=== PATIENT | female | born 1995 | race Caucasian/White ===

== ENCOUNTER 2018-02-06 10:43 | Emergency (ER) | payer BC, OTHER ==
--- NOTE | 2018-02-06 10:50 | EDPHY ---
H & P Time Seen by Provider: 02/06/18 10:49 HPI/ROS: CHIEF COMPLAINT: Left arm tingling and blurred vision HISTORY OF PRESENT ILLNESS: Otherwise healthy, visiting from [facility], her father lives here. She flew from [facility] down to [place] and then on the airplane on the way from [place] to [place] felt like she was getting tingling in both hands and blurred vision. She felt a little bit lightheaded and dizzy since then and her symptoms have varied including shortness of breath which is now resolved, hazy or blurry vision, now tingling just in her left arm. Symptoms moderate, persistent. Not better worse with anything. Not associated with headache or eye pain. She had a sore throat prior to leaving home but now it is gone. No ear symptoms. No difficulty with speech or strength. She does feel like her balance is a little bit off but has not fallen down. REVIEW OF SYSTEMS: Eye: HPI ENT: no sore throat Cardiac: no chest pain or syncope Pulmonary: no cough or SOB Abdomen: no vomiting, diarrhea, abdominal pain Musculoskeletal: No back or neck pain, no recent trauma or injury Skin: no rash Neuro: HPI Constitutional: no fever : no urinary symptoms A comprehensive 10 point review of systems is otherwise negative aside from elements mentioned in the history of present illness. PAST MEDICAL HISTORY: Negative Family history: Negative for neurologic Social history: No drugs, here with her father. General Appearance: Alert and conversant, cooperative. Eyes: No scleral icterus. Pupils equal reactive extraocular motion intact. No nystagmus. No diplopia. ENT, Mouth: Normal mucous membranes. Respiratory: Normal respiratory effort, breath sounds equal, lungs are clear to auscultation. Cardiovascular: Regular rate and rhythm. Gastrointestinal: Abdomen is soft and non tender. Neurological: Alert, face symmetric, normal motor and sensory in extremities. Normal oymxsr-[id number] bilaterally. Romberg negative. Can do tandem gait. Speech is fluent. She does have some decreased sensation to the left arm on direct testing with light touch. However she can feel me touch both arms. She has normal ginseng farmer strength. Not ataxic. Visual acuity noted, tested by nurse and is normal. Skin: Warm and dry, no rashes. Musculoskeletal: No peripheral edema. Psychiatric: Not agitated. Emergency Department course/MDM: Mother is history migraine headaches, she does feel lightheaded but has normal vital signs here. I think that pulmonary embolism or acute cardiac syndrome or dysrhythmia is unlikely. EKG performed to check her electrical intervals. With visual symptoms and left arm tingling and some subjective numbness to testing, MRI discussed and consented. Differential includes but not limited to intracranial mass or bleed, vasculitis or demyelinating disease, atypical migraine. 1220: Results discussed, emphasized no definitive diagnosis, mandatory follow- up when she returns home to [facility], stable for discharge. Does not this point have evidence of stroke or tumor or demyelinating disease, abnormal metabolic, malignant dysrhythmia. Smoking Status: Never smoked Constitutional: Initial Vital Signs Temperature (C) 36.8 C 02/06/18 10:45 Heart Rate 64 02/06/18 10:45 Respiratory Rate 17 02/06/18 10:45 Blood Pressure 127/98 H 02/06/18 10:45 O2 Sat (%) 99 02/06/18 10:45 O2 Delivery Mode Room Air Allergies/Adverse Reactions: No Known Allergies Allergy (Verified 02/06/18 10:44) Home Medications: Medication Instructions Recorded NK [No Known Home Meds] 02/06/18 Medical Decision Making - Diagnostics EKG Interpretation: 12-lead EKG interpreted by me; official reading is in computer system. My interpretation is sinus arrhythmia, P R is 209, no acute ischemic changes and otherwise normal intervals. Imaging Results: Imaging Impressions Brain MRI 02/06/18 11:06 Impression: Normal. No white matter disease, hemorrhage, or evidence of ischemia. Findings discussed with emergency department physician, Mg Ayala MD on February 06, 2018 at 12:09 p.m. Imaging: Discussed imaging studies w/ offset printer Radiologist Differential Diagnosis: Differential considered including but not limited to hyperventilation, metabolic abnormality, intracranial mass or demyelinating disease, atypical migraine - Data Points Laboratory Results: Laboratory Results 02/06/18 11:12 02/06/18 11:12 02/06/18 02/06/18 02/06/18 11:12 11:12 11:12 WBC 8.69 10^3/uL 10^3/uL (3.80-9.50) RBC 4.71 10^6/uL 10^6/uL (4.18-5.33) Hgb 13.6 g/dL g/dL (12.6-16.3) Hct 41.0 % % (38.0-47.0) MCV 87.0 fL fL (81.5-99.8) MCH 28.9 pg pg (27.9-34.1) MCHC 33.2 g/dL g/dL (32.4-36.7) RDW 13.2 % % (11.5-15.2) Plt Count 326 10^3/uL 10^3/uL (150-400) MPV 9.8 fL fL (8.7-11.7) Neut % (Auto) 65.0 % % (39.3-74.2) Lymph % (Auto) 23.1 % % (15.0-45.0) [place] % (Auto) 9.7 % % (4.5-13.0) Eos % (Auto) 1.5 % % (0.6-7.6) Baso % (Auto) 0.5 % % (0.3-1.7) Nucleat RBC Rel Count 0.0 % % (0.0-0.2) Absolute Neuts (auto) 5.65 10^3/uL 10^3/uL (1.70-6.50) Absolute Lymphs (auto) 2.01 10^3/uL 10^3/uL (1.00-3.00) Absolute Monos (auto) 0.84 10^3/uL H 10^3/uL (0.30-0.80) Absolute Eos (auto) 0.13 10^3/uL 10^3/uL (0.03-0.40) Absolute Basos (auto) 0.04 10^3/uL 10^3/uL (0.02-0.10) Absolute Nucleated RBC 0.00 10^3/uL 10^3/uL (0-0.01) Immature Gran % 0.2 % % (0.0-1.1) Immature Gran # 0.02 10^3/uL 10^3/uL (0.00-0.10) Sodium 140 mEq/L mEq/L (135-145) Potassium 4.1 mEq/L mEq/L (3.3-5.0) Chloride 105 mEq/L mEq/L (97-110) Carbon Dioxide 24 mEq/l mEq/l (22-31) Anion Gap 11 mEq/L mEq/L (8-16) BUN 13 mg/dL mg/dL (7-23) Creatinine 0.7 mg/dL mg/dL (0.6-1.0) Estimated GFR > 60 Glucose 99 mg/dL mg/dL (70-100) Calcium 9.9 mg/dL mg/dL (8.5-10.4) Beta HCG, Qual NEGATIVE Departure - Departure Disposition: Home, Routine, Self-Care Clinical Impression: Paresthesia of left arm, Blurry vision, bilateral Condition: Good Instructions: Paresthesia (ED) Additional Instructions: Normal laboratory and MRI. Please follow-up with a neurologist next week; bring copies of your studies when you return home to [facility]. Referrals: Rg Palmer DO [Doctor of Osteopathy] - As per Instructions
[2018-02-06 11:20] LABS: PLATELET COUNT 326 10^3/uL (150-400)
--- NOTE | 2018-02-06 11:40 | CPEKG ---
Test Reason : OPEN Blood Pressure : / mmHG Vent. Rate : 064 BPM Atrial Rate : 067 BPM P-R Int : 209 ms QRS Dur : 082 ms QT Int : 417 ms P-R-T Axes : 040 084 008 degrees QTc Int : 431 ms Sinus arrhythmia Borderline prolonged GA interval Left atrial enlargement Borderline T abnormalities, inferior leads Confirmed by Mg Ayala ([id number]) on 02/06/2018 11:39:33 AM Referred By: Confirmed By:Mg Ayala
[2018-02-06 12:21] VITALS: BP 130/83
== END 2018-02-06 12:32 | disposition home or self-care (01) ==
DX: H53.8 Other visual disturbances (principal); R20.2 Paresthesia of skin